=== PATIENT | female | born 1945 | race Caucasian/White ===

== ENCOUNTER 2017-01-29 14:43 | Observation (INO) | payer OTHER, MEDICARE ==
[~2017-01-29] VITALS: Ht 175.3 cm; Wt 96.6 kg
[~2017-01-29 14:43] MED LIST: ASPI-973 PO; ATEN25TA PO; CHOL200047 PO; FISH12002 PO; GINK120C PO; LIP40 PO; LOSA25TA21 PO
--- NOTE | 2017-01-29 14:46 | ED.REPORT ---
HPI-Neurologic Deficit Date of Service Jan 29, 2017 ED Provider: Jose Miguel Mendieta DO Patient is a 71 year old female with a history of breast cancer and CAD who presents to the ED due to sudden onset dysphasia onset 15 minutes ago. Per triage, the patient had a steady gait but noticed a slight right sided facial droop. The patient states she has been "unable to remember words" and was confused while reading. She denies numbness or weakness on one side of the body. Patient is currently on Eliquis. Nursing Notes Stated Complaint: STROKE Nursing Notes Reviewed: Yes Allergies: Coded Allergies: No Known Allergies (Verified , 01/29/17) Scheduled Aspirin (Aspirin) 81 Mg Tablet 81 MG PO DAILY Atorvastatin (Lipitor) 40 Mg Tablet 40 MG PO DAILY Cholecalciferol (Vitamin D3) (Vitamin D3) 2,000 Unit Capsule 2,000 UNIT PO DAILY Ginkgo Biloba Extract (Ginkgo Biloba) 120 Mg Capsule 120 MG PO BIDAC Losartan Potassium (Losartan Potassium) 25 Mg Tablet 25 MG PO DAILY Metoprolol Tartrate (Metoprolol Tartrate) 50 Mg Tablet 50 MG PO BID Miscellaneous Medications Apixaban (Eliquis) 5 Mg Tablet 5 MG PO Fish Oil/Borage/Flax/Om3,6,9#1 (Dubois 3-6-9 1,200 mg Softgel) 1,200 Mg Capsule 1 ,200 MG PO General Time Seen by Provider: 14:45 Chief Complaint Slurred speech Hx Obtained From: Patient Arrived By: Walk-in Sudden in Onset?: Yes Onset Occurred: 16 - 30 minutes ago Symptom Duration: Since onset Similar Sx Previous: No Risk Factors TPA Administration/Criteria Stroke Thrombolytic Therapy : TPA Considered: Yes Intensive Monitoring Performed: Yes TPA Administered Intravenously: No, exclusion criteria (patient is on Eliquis) NIH Stroke Scale Level of Consciousness: Alert and responsive (0) Ask Month & Age: Both questions right (0) Open/Close Eyes/Hand Water Conservation Specialist: Performs both tasks (0) Horizontal EO Movements: None (0) Visual Luna: No visual loss (0) Facial Palsy: Normal symmetry (0) Right Arm Motor Drift (10s): No drift 10 sec (0) Left Arm Motor Drift (10s): No drift 10 sec (0) Right Leg Motor Drift (5s): Drift, not touch bed (1) Left Leg Motor Drift (5s): No drift 5 sec (0) Sensation (Arms/Legs/Face): No sensory loss (0) Language Aphasia: Loss fluency ID matls (1) (expressive aphasia) Dysarthria: No dysarthria, normal (0) Extinction/Inattention: No exctinct/inattent (0) NIHSS Score: 2 Time NIHSS Performed: 14:59 Date NIHSS Performed: Jan 29, 2017 CVA Risk Stratification Age >60 Anticoag/bleed diathesis Atrial fibrillation Hypertension RF Statements: Risk factors reviewed Past Medical History Past Medical History breast cancer, lymphedema spinal stenosis Reports: Coronary artery disease, GERD, Hypertension Reports: Atrial fibrillation Past Surgical History back left mastectomy Reports: CABG Smoking History Former Smoker Ambulatory Status Independent Review of Systems Review of Systems Note: +facial droop Neurologic: Reports: Confusion, Slurred speech (dysphasia), Denies: Numbness, Weakness Complete sys rev & neg: except as marked. Physical Exam Initial Vital Signs Vital Signs (First) Date Time Temp Pulse Resp B/P Pulse Ox O2 Delivery O2 Flow Rate FiO2 01/29/17 15:00 58 14 150/86 98 Room Air Initial VS: Reviewed General/Constitutional: Awake, Alert Head / Eyes: Atraumatic, Normocephalic Respiratory / Chest: Atraumatic, Breath sounds NL, Breath sounds = bilat, No respiratory distress Cardiovascular: Heart rate NL, Regular rhythm, Heart sounds NL Neurologic: Oriented X3 Abdomen: Atraumatic, Soft, Non-tender Upper Extremity / MS: Atraumatic, Inspection NL Lower Extremity / Pelvis / MS: Atraumatic, Inspection NL Skin: Atraumatic, Color NL, No rash, Warm, Dry Interpretation & Diagnostics Lab Results Interpretation Result Diagram: 01/29/17 1500 01/29/17 1500 Test 01/29/17 15:00 White Blood Count 6.0th/mm3 (3.8-10.1) Red Blood Count 4.63mil/mm3 (3.90-5.20) Hemoglobin 13.3g/dL (12.0-15.6) Hematocrit 40.6% (35.0-46.0) Mean Corpuscular Volume 87.7fL (81-100) Mean Corpuscular Hemoglobin 28.7pg (27.0-35.0) Mean Corpuscular Hemoglobin Concent 32.8% (32.0-37.0) Red Cell Distribution Width 13.9% (12.3-15.4) Platelet Count 206bil/L (150-400) Neutrophils (%) (Auto) 43.2% (40-74) Lymphocytes (%) (Auto) 41.0% (14-46) Monocytes (%) (Auto) 11.4% (4-12) Eosinophils (%) (Auto) 3.7% (0-5) Basophils (%) (Auto) 0.5% (0-3) Prothrombin Time 9.9sec (8.1-12.5) Prothromb Time International Ratio 0.93ratio Activated Partial Thromboplast Time 28.5sec (22.8-33.0) Sodium Level 135mEq/L (134-144) Potassium Level 4.2mEq/L (3.5-5.2) Chloride Level 98mEq/L (97-108) Carbon Dioxide Level 23mmol/L (18-29) Blood Urea Nitrogen 11mg/dL (8-27) Creatinine 0.62mg/dL (0.57-1.00) Estimat Glomerular Filtration Rate 136mL/min (>59) Glucose Level 96mg/dL (60-99) Calcium Level 9.5mg/dL (8.5-10.1) Total Bilirubin 0.3mg/dL (0.0-1.2) Aspartate Amino Transf (AST/SGOT) 22U/L (0-50) Alanine Aminotransferase (ALT/SGPT) 22U/L (0-32) Alkaline Phosphatase 72U/L (25-165) Troponin T < 0.010ug/L (0.0-0.011) Total Protein 7.8g/dL (6.4-8.4) Albumin 4.6g/dL (3.4-5.0) Hold Hahn Top Tube Received (Received) ECG Interpretation ECG Interpretation: probable left atrial enlargement LVH Time: 15:42 Interpreted by: ED physician Normal ECG Interpretation: Normal rate (51), Normal sinus rhythm X-Ray Chest Interpretation Chest Xray Interpretation: IMPRESSION: Unremarkable chest. No acute cardiopulmonary process is evident. Dictated by: Vignesh Blount M.D. on 01/29/2017 at 14:43 Approved by: Vignesh Blount M.D. on 01/29/2017 at 14:46 Interpretation / Wet Read by: Interpret - Radiologist CT Head Interpretation IMPRESSION: Normal for age, no contraindication to TPA administration. Findings immediately called to the emergency room physician caring for the patient at 2:58 PM. This study fulfills neurological imaging criteria for inclusion or exclusion of acute stroke therapies based on available published neurological imaging guidelines. Dictated by: Cruz Tejada M.D. on 01/29/2017 at 14:58 Approved by: Cruz Tejada M.D. on 01/29/2017 at 15:02 Interpretation / Wet Read by: Interpret - Radiologist Re-Eval/Medical Decision Med Decision/Clinical Course Not a TPA candidate due to anticoagulant use. Patient will be admitted for TIA. Re-Evaluation/Progress #1: Time of Eval: 15:07 Re-Evaluation/Progress Note: Discussed plan to admit for observation. Patient understands and agrees to plan. All questions were addressed. Re-Evaluation/Progress #2: Time of Eval: 15:10 Re-Evaluation/Progress Note: Patient's symptoms continue to improve. Re-Evaluation/Progress #3: Time of Eval: 16:02 Re-Evaluation/Progress Note: Patient reports feeling back at baseline and her symptoms have resolved. Consultation : Referral / Consult Name: Stevo Millard MD Consulted With: Hospitalist Call Returned at: 17:03 Slab Depiler Operator: Agrees with eval, Agrees with plan, Accepts admit Counseled Regarding: Diagnosis, Lab results, Need for admission Discharge & Departure Impression: Primary Impression: TIA (transient ischemic attack) Transient cerebral ischemia type: unspecified Qualified Code: G45.9 - Transient cerebral ischemic attack, unspecified Disposition: ADMITTED TO HOSPITAL Discharge Condition All VS Reviewed: Yes Condition: Stable Referrals: Jose Carlos Velasquez MD (PCP) Sara Attestation Portions of this note were transcribed by Damaris Fallon. I, Dr. Mata Crane personally performed the history, physical exam and medical decision-making; I reviewed and confirmed the accuracy of the information in the transcribed note. Signed by: Sara Sesay, 01/29/17 copies to: Jose Carlos Velasquez MD, Timothy S DO Jan 29, 2017 14:46 Fatoumata Fallon Jan 29, 2017 14:55
[2017-01-29] MEDS ORDERED: 0.9% Sodium Chloride 1,000 ML IV ONE (14:47)
[2017-01-29 15:00] VITALS: BP 150/86; PULSE 58; RESP 14; O2SAT 98
[2017-01-29 15:11] LABS: BASOPHILS % (AUTO) 0.5 % (0-3); EOSINOPHILS % (AUTO) 3.7 % (0-5); MONOCYTES % (AUTO) 11.4 % (4-12); Mean Corpuscular Hemoglobin 28.7 pg (27.0-35.0); Mean Corpuscular Volume 87.7 fL (81-100); NEUTROPHILS % (AUTO) 43.2 % (40-74); Platelet Count 206 bil/L (150-400)
--- NOTE | 2017-01-29 15:16 | DRSVH ---
PROCEDURE: CT BRAIN TPA INDICATIONS: aphasia TECHNIQUE: Noncontrast 4.5 mm thick angled axial sections acquired from the foramen magnum to the vertex, with c oronal reformats. COMPARISON: [facility], MR, BRAIN W&W/O CONTRAST, 06/12/2011, 8:15. FINDINGS: Image quality: Excellent. CSF spaces: Basal cisterns are patent. No extra-axial fluid collections. Ventricles are normal in size and shape. Brain: No midline shift. No intracranial masses or hemorrhage. Fournier-white matter interface is norm al. Skull and face: Calvarium and visualized facial bones are intact, without suspicious lesions. Sinuses: Visualized sinuses and mastoids are clear. IMPRESSION: Normal for age, no contraindication to TPA administration. Findings immediately called to the emergency room physician caring for the patient at 2:58 PM. This study fulfills neurological imaging criteria for inclusion or exclusion of acute stroke therapie s based on available published neurological imaging guidelines. Dictated by: Cruz Tejada M.D. on 01/29/2017 at 14:58 Approved by: Cruz Tejada M.D. on 01/29/2017 at 15:02
[2017-01-29 15:31] LABS: INR 0.93 ratio
[2017-01-29 15:40] LABS: TROPONIN T < 0.010 ug/L (0.0-0.011)
--- NOTE | 2017-01-29 15:48 | DRSVH ---
PROCEDURE: X-RAY CHEST ONE VIEW, PORTABLE ([id number]) INDICATIONS: aphasia, cva symptoms TECHNIQUE: One view of the chest was acquired. COMPARISON: [facility], CT, CHEST WITH CONTRAST, 10/15/2013, 8:52. [facility], CR, CHEST 2VW, 06/21/2014, 10:40. FINDINGS: Surgical changes and devices: Postoperative changes related to previous cardiac heart valve replaceme nt is noted. Median sternotomy wires are present. The most superior sternal wire is fractured. Cli ps are seen within the left axilla. Lungs and pleura: No pleural effusions or pneumothorax. Lungs are clear. Mediastinum: Mediastinal contours appear normal. Heart size is normal. Bones and chest wall: No suspicious bony lesions. Overlying soft tissues appear unremarkable. IMPRESSION: Unremarkable chest. No acute cardiopulmonary process is evident. Dictated by: Vignesh Blount M.D. on 01/29/2017 at 14:43 Approved by: Vignesh Blount M.D. on 01/29/2017 at 14:46
[2017-01-29] MEDS ORDERED: METO50TA3 PO (16:00)
[2017-01-29] MEDS ORDERED: APIX5TAB PO (16:00)
[2017-01-29 16:22] VITALS: BP 138/78; PULSE 55; RESP 11; O2SAT 97
[2017-01-29] MEDS ORDERED: Polyethylene Glycol (PEG) 17 Gm Powder PO PRN (17:40)
[2017-01-29] MEDS ORDERED: Ondansetron 2 mg/mL 2 mL Inj IVPUSH PRN (17:40)
[2017-01-29] MEDS ORDERED: Alum-Mag Hydrox-Simeth 30 mL Suspension PO PRN (17:40)
--- NOTE | 2017-01-29 18:00 | NUR ---
admit 1750 pt arrived from ED via W/C. pt was able to transfer self to hospital bed. pt denies pain/CP/SOB. pt is alert and oriented and has no residual from earlier episode when she was not able to read or communicate. pt has and daughter in room when arrived on floor.
[2017-01-29 18:01] VITALS: BP 158/83; PULSE 58; RESP 18; O2SAT 99
[2017-01-29 18:25] VITALS: PULSE 55
--- NOTE | 2017-01-29 19:38 | DRSVH ---
PROCEDURE: US BILATERAL DUPLEX DOPPLER IMAGING OF THE CAROTIDS ([id number]) INDICATIONS: TIA TECHNIQUE: Color and pulse Doppler interrogation was performed of both carotid systems, with image documentation and velocity measurements. COMPARISON: None. FINDINGS: Stenosis calculations are based on SRU (Society of Radiologists in Ultrasound) criteria. Right side: Brachial blood pressure: 158/83 mm Hg. Common carotid artery peak systolic velocity: 76 cm/sec. Internal carotid artery peak systolic velocity: 98 cm/sec. Internal carotid artery end diastolic velocity: 24 cm/sec. External carotid artery peak systolic velocity: 98 cm/sec. ICA/CCA peak systolic ratio: 1.29. Fournier scale imaging description: Dense atheromatous plaque is present at the carotid bifurcation. Percent internal carotid artery stenosis: Less than 50% stenosis. Vertebral artery: Flow direction is antegrade. Left side: Brachial blood pressure: Not obtained Common carotid artery peak systolic velocity: 83 cm/sec. Internal carotid artery peak systolic velocity: 74 cm/sec. Internal carotid artery end diastolic velocity: 27 cm/sec. External carotid artery peak systolic velocity: 79 cm/sec. ICA/CCA peak systolic ratio: 0.89. Fournier scale imaging description: Mild atheromatous plaque at the carotid bifurcation. Percent internal carotid artery stenosis: Less than 50% stenosis. Vertebral artery: Flow direction is antegrade. IMPRESSION: Less than 50% stenosis of the bilateral internal carotid arteries. Dictated by: Yi Lerner M.D. on 01/29/2017 at 19:34 Approved by: Yi Lerner M.D. on 01/29/2017 at 19:36
[2017-01-29] MEDS ORDERED: NITR0.4T38 SL (19:54)
[2017-01-29] MEDS ORDERED: DIPH25CA6 PO (19:54)
[2017-01-29] MEDS ORDERED: ATOR80TA77 PO (19:54)
[2017-01-29] MEDS ORDERED: SENN-133 PO (19:54)
[2017-01-29] MEDS ORDERED: ASCO500C6 PO (19:54)
[2017-01-29 20:00] VITALS: PULSE 57
[2017-01-29 20:39] VITALS: BP 137/86; PULSE 60; RESP 16; O2SAT 96
--- NOTE | 2017-01-29 20:50 | PCM.HPMED ---
Subjective Date of Service Jan 29, 2017 Primary Provider: Admitting Physician: Stevo Millard MD Primary Care Physician: Jose Carlos Velasquez MD Attending Physician: Stevo Millard MD Admit Status: From the Emergency Department, 23-Hour Observation, Admit to [facility], Remote Telemetry Chief Complaint: Expressive aphasia. . History of Present Illness: Bridgette Mcghee is a 71-year-old female with a past medical history significant for CAD status post CABG 3 vessels, hypertension, hyperlipidemia, ocular migraines untreated, and left breast cancer status post mastectomy and tamoxifen now in remission who presented to [facility] emergency Department for expressive aphasia. 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 She then was talking to her boss regarding the resumes and was unable to gather words and say what she was thinking. She reports that earlier this morning she had an ocular migraine , as well as, last week. She believes her ocular migraines are worsening and becoming more frequent. Her reports that she had slurred speech which lasted about 20 minutes. She had no facial droop or focal extremity weakness. She denies sore throat, cough, chest pain, shortness of breath, abdominal pain, nausea, vomiting, fever, chills, dysuria, or diarrhea. She does endorse some dizziness several days ago and chronic constipation. She has no other complaints. Vital signs in the ER: Temperature 36.8. Pulse 58. Respiratory rate 14. Blood pressure 150/86. Pulse ox 98% on room air. She received 1 L of NS in the ED. PCP is Dr. Jose Carlos Velasquez. Line Mechanic is Dr. Velazquez. . Review of Systems: A comprehensive review of systems was conducted with the patient and found to be negative except as above in the History of Present Illness. . Allergies Coded Allergies: No Known Allergies (Verified , 01/29/17) Home Medications Aspirin 81 mg twice daily. Diphenhydramine 25-50 mg as needed for sleep Eliquis 5 mg twice daily. Atorvastatin 80 mg daily. Fish oil 1200 mg daily. Ginkgo biloba 120 mg twice a day before meals. Losartan 25 mg daily Metoprolol tartrate 50 mg twice a day. Senokot 8.6 mg twice daily. Vitamin D3 2000 international units daily. Vitamin C 500 mg daily . PMH 1. Left breast cancer, status post left mastectomy and tamoxifen, in remission monitored annually with mammogram. 2. CAD status post CABG x 3 vessels. 3. Hypertension. 4. Hyperlipidemia. 5. Paroxysmal atrial fibrillation on Eliquis. 6. Bicuspid aortic valve status post valve replacement. 7. Ocular migraines. . Surgical History 1. Bilateral tubal ligation. 2. Laparotomy for hemorrhage. 3. CABG x vessels. 4. Left mastectomy. 5. L4-L5 fusion. 6. Bicuspid aortic valve status post valve replacement. 7. Parathyroid adenoma status post parathyroidectomy. 8. Appendectomy. . Family History Mother who had several CVA at 82 years old and at 97 years old. Father who had tuberculosis and of AAA. No siblings. . Social History Hx Alcohol Use: Yes (1x/week) Hx Substance Use: No Hx Tobacco Use: Yes (quit 1985, 1 ppd x 18 years) Smoking Status: Former Smoker Exam Vital Signs Vital Sign - Last Date Time Temp Pulse Resp B/P Pulse Ox O2 Delivery O2 Flow Rate FiO2 01/29/17 18:25 55 01/29/17 18:01 36.8 18 158/83 99 Room Air Exam General: Older female lying in bed and in no acute distress, well-developed, well-nourished, appropriately interactive. HEENT: Normocephalic, atraumatic. External ears without defect. Pupils equal, round, and reactive to light. Anicteric sclerae, moist conjunctivae, and no lid lag. Oropharynx free of erythema and cobble stoning with moist mucosa. Neck: Supple with full range of motion. No jugular venous distension. No bruits. No lymphadenopathy or thyromegaly. Cardiovascular: Regular rate and rhythm without murmurs, rubs, or gallops appreciated Pulmonary: Clear to auscultation bilaterally without crackles, wheezes, or rhonchi. Normal respiratory effort with no use of accessory muscles. Abdomen: Soft, nontender, nondistended, bowel sounds present. No hepatosplenomegaly or masses appreciated. Extremities: No clubbing, cyanosis, or edema. Skin: Normal temperature, turgor, and texture; no rash, ulcers, or subcutaneous nodules appreciated. Neurological: Cranial nerves grossly intact. Normal muscle strength, tone, and bulk. Bilateral plantar reflexes normal. No dysmetria or motor drift. Deep tendon reflexes, coordination, and sensory function within normal limits. No known gait impairment. Psychiatric: Normal mood and affect. Alert and oriented to person, place, and time. . Lab and Diagnostics Labs Item Value Date Time Prothrombin Time 9.9 sec 01/29/17 1500 Prothromb Time International Ratio 0.93 ratio 01/29/17 1500 Activated Partial Thromboplast Time 28.5 sec 01/29/17 1500 Item Value Date Time Calcium Level 9.5 mg/dL 01/29/17 1500 Total Bilirubin 0.3 mg/dL 01/29/17 1500 Aspartate Amino Transf (AST/SGOT) 22 U/L 01/29/17 1500 Alanine Aminotransferase (ALT/SGPT) 22 U/L 01/29/17 1500 Alkaline Phosphatase 72 U/L 01/29/17 1500 Troponin T < 0.010 ug/L 01/29/17 1500 Total Protein 7.8 g/dL 01/29/17 1500 Albumin 4.6 g/dL 01/29/17 1500 Result Diagram: 01/29/17 1500 01/29/17 1500 X-Rays, CTs and MRIs X-RAY CHEST ONE VIEW, PORTABLE IMPRESSION: Unremarkable chest. No acute cardiopulmonary process is evident. Dictated by: Vignesh Blount M.D. on 01/29/2017 at 14:43 CT BRAIN TPA IMPRESSION: Normal for age, no contraindication to TPA administration. Findings immediately called to the emergency room physician caring for the patient at 2:58 PM. This study fulfills neurological imaging criteria for inclusion or exclusion of acute stroke therapies based on available published neurological imaging guidelines. Dictated by: Cruz Tejada M.D. on 01/29/2017 at 14:58 . Assessment & Plan Bridgette Mcghee is a 71-year-old female with a past medical history significant for CAD status post CABG 3 vessels, hypertension, hyperlipidemia, ocular migraines untreated, and left breast cancer status post mastectomy and tamoxifen now in remission who presented to [facility] emergency Department for expressive aphasia. 1. Transient expressive aphasia, not present on admission. Active. - The patient presented after 20 minutes of expressive aphasia and mild slurred speech without facial droop or focal extremity weakness. - CVA risk factors include: CAD status post CABG, hypertension, hyperlipidemia, ocular migraines, paroxysmal atrial fibrillation. - Differential diagnosis includes: TIA versus ocular or complex migraine. - NIHSS on admission was 2. - CT brain without contrast did not demonstrate any acute intracranial abnormalities. - Ordered bilateral carotid Doppler ultrasound, pending. - Ordered echocardiogram, pending. - Ordered physical, occupational, and speech therapies. - Continue Eliquis 5 mg twice daily and aspirin 81 mg twice daily. Do not believe the patient failed anticoagulant as there is no evidence of CVA. - Ordered MRI stroke protocol, however, the patient does have hardware in her low lumbar spine which may be a contraindication to MRI. If so will proceed with CTA brain. 2. Probable ocular migraine, present on admission. Active. - Highly recommend the patient been seen by neurology and treated as an outpatient. - Rule out TIA, see plan above. Chronic problems: 3. CAD status post CABG x 3 vessels. - Continue Eliquis 5 mg twice daily and aspirin 81 mg twice daily. 4. Hypertension, present on admission. Stable. - Continue losartan 25 mg daily and metoprolol tartrate 50 mg twice a day. 5. Hyperlipidemia, present on admission. Stable. - Continue atorvastatin 80 mg daily. 6. Paroxysmal atrial fibrillation on Eliquis, present on admission. Stable. - Continue Eliquis 5 mg twice daily. 7. Bicuspid aortic valve status post valve replacement, present on admission. Stable. - Continue Eliquis 5 mg twice daily and aspirin 81 mg twice daily. 8. Left breast cancer, status post left mastectomy and tamoxifen, in remission monitored annually with mammogram. PRN antiemetics: Zofran and Maalox. PRN bowel regimen: Senna and MiraLAX. PRN analgesics: Tylenol. Patient is admitted under observation status with expected length of stay less than 2 midnights due to severity of presenting symptoms, risk of adverse event, and complexity of treatment plan. . VTE Prophylaxis: Other (Eliquis ) Resuscitation Status: CPR: Attempt Resuscitation Attending Statement patient seen independently,discussed with resident Dr Beck .I agree with history ,exam,assessment and plan copies to: Chino Velazquez MD; Jose Carlos Velasquez MD, [place] M DO Jan 29, 2017 18:53 Stevo Millard MD Jan 29, 2017 21:26
--- NOTE | 2017-01-29 21:37 | NUR ---
Unable to have MRI: Unable to have the MRI tonight. pulmonology technician discussed pt's health history with pt, [place] specifically stated no MRIs after placing hardware with back surgery two years ago. Dr. Beck called and informed. Further care will be discussed with the doctor tomorrow.
[2017-01-30] VITALS (7 sets, daily range): BP systolic 106–145; BP diastolic 62–111; PULSE 53–63; RESP 16–18; O2SAT 95–97
[2017-01-30 06:52] LABS: BASOPHILS % (AUTO) 0.6 % (0-3); EOSINOPHILS % (AUTO) 3.7 % (0-5); MONOCYTES % (AUTO) 9.3 % (4-12); Mean Corpuscular Hemoglobin 28.9 pg (27.0-35.0); Mean Corpuscular Volume 88.3 fL (81-100); Platelet Count 189 bil/L (150-400)
--- NOTE | 2017-01-30 09:20 | NUR ---
Evaluation completed. Please go to "Notes" then click on "Assessments and Notes" (bottom left corner of screen). Then select appropriate discipline tab on top of screen.
--- NOTE | 2017-01-30 11:08 | NUR ---
Social Work-initial assessment/ readiness for discharge/ multidisciplinary rounds: Data:See initial assessment. Pt is a 71 y/o female who was admitted on 01/29/17 for TIA per H&P. Pt's insurance is [employer] and [facility] and PCP is Jose Carlos Velasquez MD. EMR reviewed. Pt' readmission score is 2. SW met with pt and at bedside, SW role explained. Pt is alert and oriented x3. Pt resides at home with her where she remains independent with ADLS. Pt drives and does not use any DME. Pt has no HH or SNF history. No long-term care insurance or VA benefits. Pt has completed DPOA/ advanced directive paperwork, SW encouraged a copy to be brought in. PT evaluation is pending. ST has cleared pt for home. 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 SW provided pt with discharge planning checklist and encouraged pt to call with any questions, SW provided phone number on white board in room. Pt's to provide transport home. No anticipated discharge needs. SW will continue to follow if needs arise. Assessment:Pt who is independent at baseline. Plan:Pt to discharge home when medically stable via POV. No anticipated discharge needs. SW will continue to follow if needs arise. JAROD Sheets Addendum: 01/30/17 at 1119 by LEELEE FULLER SS Amended: Links added. Addendum: 01/30/17 at 1513 by LEELEE MCLEOD PT has cleared pt for home no needs. Leelee Fuller,JAROD
--- NOTE | 2017-01-30 14:44 | DRSVH ---
[facility] [address] [place] [address] Echocardiogram Report Name: BALJEET JONES MStudy Date: Height: 69 in Hospital Exam Location: [facility] Weight: 213 lb Gender: Female BSA: 2.1 m2 : 1945 Age: 71 yrs BP: 114/71 mmHg Reason For Study: TIA Ordering Physician: HOSPITALIST [facility] Performed By: Viola Muhammad Referring Physician: Hayder Hospitalist Interpretation Summary Sinus bradycardia. Heart rate is 51-54 bpm Normal LV size, wall thickness, wall motion and LV systolic function. EF is 55-60%. Moderate biatrial enlargement. Otherwise normal chamber sizes. No PFO based on color flow Doppler. Aortic valve is replaced with a stented bioprosthesis It is functioning normally. It is a 23 Perimount bioprosthesis placed 04/17/2016 for severe aortic stenosis. There is mild MAC with mild associated MR. No source of embolism identified. Compared to prior study 07/23/2016, small pericardial effusion is no longer seen. Otherwise no significant changes have occurred. Procedure: A two-dimensional transthoracic echocardiogram with color flow and Doppler was performed. The study quality was technically adequate. Comparison is made with the echocardiogram of 07/23/16. The patient was in sinus bradycardia with heart rates between 51-54 bpm during the exam. The patient had occasional PVCs during the exam. Left Ventricle: The left ventricle is normal in size, wall thickness, and systolic function without any focal wall motion abnormalities. The ejection fraction is estimated to be 55-60%. Assessment of diastolic parameters indicates normal left ventricular diastolic function and normal filling pressures. Normal PV flow systolic predominance. Right Ventricle: The right ventricle is normal in size and function. Atria: The left atrium is moderately dilated. The right atrium is moderately dilated. There is no Doppler evidence for an interatrial shunt. Mitral Valve: The mitral valve leaflets appear mildly thickened, but open well. There is trace mitral regurgitation. Aortic Valve: There is a bioprosthetic aortic valve. The prosthetic aortic valve is well-seated. The prosthetic aortic valve appears to open well. The prior LVOT diameter measured at 2.2, today the diameter measured at 1.8. The peak aortic velocity is 2.7 m/sec. The peak aortic velocity on the previous exam was 2.4 m/sec. No aortic regurgitation is present. Tricuspid Valve: The tricuspid valve is normal in structure and function. There is a trace or physiologic amount of tricuspid regurgitation. The right ventricular systolic pressure is estimated at 26 mmHg assuming a right atrial pressure of 3 mm Hg. Pulmonic Valve: The pulmonic valve is not well seen, but is grossly normal. There is a trace or physiologic amount of pulmonic regurgitation. Great Vessels: The aortic root is normal size. The ascending aorta is mildly enlarged. The pulmonary artery is not well visualized, but is probably normal size. The IVC is of normal diameter and collapses greater than 50% with a sniff. This suggests a low right atrial pressure of 3 mm Hg. Pericardium/ Pleura There is no pericardial effusion. There is no pleural effusion. MMode/2D Measurements & Calculations LVIDd: 5.1 cm LVIDs: 4.0 cm LA A2 area: 26.2 cm FS: 20.7 % LA A4 area: 24.0 cm EPSS: 1.1 cm LA length (vol): 6.2 cm IVSd: 0.91 cm LA vol: 86.2 ml LVPWd: 0.91 cm LA vol index: 40.6 ml/m IVC diam: 1.4 cm RA long axis: 5.6 cm LVOT diam: 1.8 cm RA area: 24.1 cm Ao root diam: 3.1 cm RA vol: 88.6 ml asc Aorta Diam: 3.7 cm RA : 41.7 ml/m2 LV hood. diameter/BSA (cm/m^2): 2.4 LV sys. diameter/BSA (cm/m^2): 1.9 RVD1 (basal): 3.7 cm Doppler Measurements & Calculations Ao V2 max: 271.8 cm/sec MV E max mauri: 119.3 cm/sec Ao max P.9 mmHg MV A max mauri: 88.3 cm/sec Ao mean P.6 mmHg MV P1/2t: 90.0 msec LVOT Max Mauri: 84.1 cm/sec BOBO(I,D): 0.83 cm sev ratio: 0.31 MV E/A: 1.4 TR max mauri: 238.1 cm/sec TR max P.7 mmHg PA V2 max: 84.0 cm/sec PA mean P.8 mmHg MV dec time: 0.30 sec MV P1/2t max mauri: 119.3 cm/sec MVA(P1/2t): 2.4 cm2 Ao V2 mean: 194.2 cm/sec LV V1 max P.8 mmHg Ao V2 VTI: 68.9 cm LV V1 VTI: 21.5 cm BOBO(V,D): 0.82 cm2 PA V2 mean: 65.9 cm/sec BOBO indexed to BSA (cm^2/m^2): 0.39 Reading Physician:02:43 PM
--- NOTE | 2017-01-30 15:23 | PCM.DIMED ---
Discharge Instructions Date of Service Jan 30, 2017 Dates of Hospitalization Jan 29, 2017 at 17:04 Discharge Diagnosis Discharge Diagnosis 1. Transient expressive aphasia, not present on admission. resolved 2. ocular migraine, present on admission. Active. 3. symptomatic right carotid stenosis of around 70% on CTA Chronic problems: 4. Hypertension, present on admission. Stable. 5. Hyperlipidemia, present on admission. Stable. 6. Paroxysmal atrial fibrillation on Eliquis, present on admission. Stable. 7. Bicuspid aortic valve status post valve replacement, present on admission. Stable. 8. History of Left breast cancer, status post left mastectomy and tamoxifen, in remission 9. CAD status post CABG x 3 vessels. Diet Discharge Diet: Low fat, Low Sodium Activity Discharge Activity: Limited until seen by PCP Call your provider Call your provider for: Fever or Chills, Shortness of breath, Bleeding, Chest pain, Vomitting, Excessive diarrhea, Weakness (unilateral) Patient Instructions Patient Instructions # You were hospitalized due to transient ischemic attack . echocardiogram unremarkable. bilateral carotid Doppler ultrasound estimates < 50 % stenosis but CT angiogram estimates at least a 70% stenosis at the right internal carotid artery origin.evaluated by neurology Dr Crandall , he recommends vascular surgical evaluation.community placement worker Amee is trying to get you an appointment in [place] and will call you later . Please continue Aspirin,atorvastatin and eliquis as usual . Aspirin 81 mg daily should suffice for stroke prevention. # Dr Crandall has started you on topiramate 25 mg by mouth daily for your ocular migraine. Increase dose to 25 mg by mouth twice a day after [address] crandall's office will call you with follow-up appointment date. Follow-up Provider: Jose Carlos Velasquez MD Follow-up with PCP in: 1 week Provider: Pa Crandall MD Follow-up in: 3 weeks Additional Information Please get evaluation with vascular surgeon in [facility] in 1-2 weeks. No vascular surgeon available in our hospital currently. our vascular surgeon Dr.Morrie Warren on medical leave. Stevo Millard MD Jan 30, 2017 15:23
--- NOTE | 2017-01-30 15:43 | NUR ---
Social Work-discharge: Data:EMR reviewed. Pt is on day 1 of hospitalization for TIA per H&P. Pt is medically stable for discharge. PT has cleared pt for home no needs. Pt's to provide transport home. No anticipated discharge needs. All updated and agreeable to plan. Assessment:Pt who is independent at baseline. Plan: Pt to discharge home today via POV. No anticipated discharge needs. All updated and agreeable to plan. JAROD Sheets Addendum: 01/31/17 at 0809 by ANGELA FELIPE SS LENIN updated that discharge was cancelled for cardiology consult today. LENIN will continue to follow. JAROD Sheets
--- NOTE | 2017-01-30 17:12 | DRSVH ---
PROCEDURE: CT ANGIO HEAD AND NECK (P) INDICATIONS: TIA,unable to do MRI TECHNIQUE: Pre-contrast 4.5 mm thick sections acquired from the foramen magnum to the vertex. After the adminis tration of intravenous contrast, 1 mm thick sections acquired from the aortic arch through the [place] of [place]. Post-contrast 4.5 mm thick sections then re-acquired from the foramen magnum to the vert ex. 3-dimensional fyaiffd-zpaeqvtjp-sxiwedigat (MIP) and/or volume rendering reformats were acquired of the central intracranial vasculature and neck separately. For radiation dose reduction, the foll owing was used: automated exposure control, adjustment of mA and/or kV according to patient size. COMPARISON: [facility], CR, XR CHEST 1VW (PORTABLE), 01/29/2017, 15:17. [facility], CT, CT BRAIN TPA, 01/29/2017, 14:47. [facility], US, US CAROTID DPLX DOPPLER BILA T, 01/29/2017, 18:27. FINDINGS: Image quality: Excellent. BRAIN: CSF spaces: Ventricles are normal in size and shape. Basal cisterns are patent. No extra-axial flu id collections. Brain: No midline shift. No intracranial bleeds or masses. Fournier-white matter interface appears int act. Skull and face: Calvarium and facial bones appear intact, without suspicious lesions. Orbits appear normal. Sinuses: Sinuses and mastoids are clear. HEAD CT ANGIOGRAPHY: Anterior circulation: Intracranial internal carotid arteries are normal in size and flow. The flow within the paired anterior cerebral arteries is normal and symmetric. The flow within the middle cer ebral arteries is normal and symmetric. The anterior communicating artery is seen. No aneurysms are seen. Posterior circulation: Visualized portions of the vertebral arteries demonstrate normal caliber, and join to form a normal appearing basilar artery. Flow within the posterior cerebral arteries is norm al and symmetric. No aneurysms are seen. NECK CT ANGIOGRAPHY: Carotid system: The great vessels demonstrate a conventional anatomy as they arise from the aortic a rch. The origins of the common carotid arteries appear patent. The common carotid arteries demonstr ate normal caliber and courses. The bifurcation regions asymmetrically involved by atherosclerotic c alcification with dense calcific plaquing at the bifurcation on the right, as was seen during carotid ultrasound 01/29/17. Morphologically the narrowing of the origin of the right internal carotid arter y would be estimated at 70%. The internal carotid arteries demonstrate normal calibers and courses. Posterior circulation: The origins of the vertebral arteries both appear widely patent. The more carlos perior extracranial portions of both vertebral arteries also demonstrate normal courses and calibers. They join to form a normal appearing basilar artery. Soft tissues: Visualized neck soft tissues demonstrate no suspicious abnormalities. Bones: No suspicious bony lesions. Visualized cervical spine appears normally aligned. IMPRESSION: Dense atherosclerotic plaquing with extensive calcification is present asymmetrically pro minent at the bifurcation of the right common carotid artery and extending into the proximal right in ternal carotid artery. This was seen by ultrasound of the carotid arteries bilaterally one day ago, but the degree of stenosis estimated by the ultrasound is appreciably less than that suspected by mor phologic appearance during this CT scanning. I would estimate that there is at least a 70% stenosis at the right internal carotid artery origin. Vascular surgical consultation may be warranted, and further assessment for whether the patient is a potential candidate for MR angiography is recommended. Based on symptomatology and the current findi ngs by CT angiography followed by catheter angiography may become necessary. Dictated by: Cruz Tejada M.D. on 01/30/2017 at 17:01 Approved by: Cruz Tejada M.D. on 01/30/2017 at 17:10
--- NOTE | 2017-01-30 17:56 | PCM.PNMED ---
Subjective Date of Service Jan 30, 2017 Subjective No episode of ocular migraine or aphasia today. No neuro complaints of findings Exam Vital Signs Vital Sign - Last Date Time Temp Pulse Resp B/P Pulse Ox O2 Delivery O2 Flow Rate FiO2 01/30/17 14:43 36.9 55 16 127/65 96 Room Air Intake and Output 01/29/17 01/29/17 01/30/17 Cumulative From/Thru 15:00 23:00 07:00 01/29/17 15:00 - 01/30/17 05:53 Intake Total 1000 ml 750 ml 1750 ml Output Total 950 ml 950 ml Balance 1000 ml -200 ml 800 ml Intake Oral 750 ml 750 ml IV Total 1000 ml 1000 ml Output Urine Total 950 ml 950 ml IVs and Medications Medications Reviewed: Medications were reviewed in detail Lab and Diagnostics Result Diagram: 01/30/17 0620 01/30/17 0620 X-Rays, CTs and MRIs X-RAY CHEST ONE VIEW, PORTABLE IMPRESSION: Unremarkable chest. No acute cardiopulmonary process is evident. Dictated by: Vignesh Blount M.D. on 01/29/2017 at 14:43 CT BRAIN TPA IMPRESSION: Normal for age, no contraindication to TPA administration. Findings immediately called to the emergency room physician caring for the patient at 2:58 PM. This study fulfills neurological imaging criteria for inclusion or exclusion of acute stroke therapies based on available published neurological imaging guidelines. Dictated by: Cruz Tejada M.D. on 01/29/2017 at 14:58 .PROCEDURE: CT ANGIO HEAD AND NECK (P) INDICATIONS: TIA,unable to do MRI IMPRESSION: Dense atherosclerotic plaquing with extensive calcification is present asymmetrically prominent at the bifurcation of the right common carotid artery and extending into the proximal right internal carotid artery. This was seen by ultrasound of the carotid arteries bilaterally one day ago, but the degree of stenosis estimated by the ultrasound is appreciably less than that suspected by morphologic appearance during this CT scanning. I would estimate that there is at least a 70% stenosis at the right internal carotid artery origin. Vascular surgical consultation may be warranted, and further assessment for whether the patient is a potential candidate for MR angiography is recommended. Based on symptomatology and the current findings by CT angiography followed by catheter angiography may become necessary. Dictated by: Cruz Tejada M.D. on 01/30/2017 at 17:01 PROCEDURE: US BILATERAL DUPLEX DOPPLER IMAGING OF THE CAROTIDS ([id number]) INDICATIONS: TIA TECHNIQUE: Color and pulse Doppler interrogation was performed of both carotid systems, with image documentation and velocity measurements. COMPARISON: None. FINDINGS: Stenosis calculations are based on SRU (Society of Radiologists in Ultrasound) criteria. Right side: Brachial blood pressure: 158/83 mm Hg. Common carotid artery peak systolic velocity: 76 cm/sec. Internal carotid artery peak systolic velocity: 98 cm/sec. Internal carotid artery end diastolic velocity: 24 cm/sec. External carotid artery peak systolic velocity: 98 cm/sec. ICA/CCA peak systolic ratio: 1.29. Fournier scale imaging description: Dense atheromatous plaque is present at the carotid bifurcation. Percent internal carotid artery stenosis: Less than 50% stenosis. Vertebral artery: Flow direction is antegrade. Left side: Brachial blood pressure: Not obtained Common carotid artery peak systolic velocity: 83 cm/sec. Internal carotid artery peak systolic velocity: 74 cm/sec. Internal carotid artery end diastolic velocity: 27 cm/sec. External carotid artery peak systolic velocity: 79 cm/sec. ICA/CCA peak systolic ratio: 0.89. Fournier scale imaging description: Mild atheromatous plaque at the carotid bifurcation. Percent internal carotid artery stenosis: Less than 50% stenosis. Vertebral artery: Flow direction is antegrade. IMPRESSION: Less than 50% stenosis of the bilateral internal carotid arteries. Dictated by: Yi Lerner M.D. on 01/29/2017 at 19:34 Cardiac Echo Impressions Interpretation Summary Sinus bradycardia. Heart rate is 51-54 bpm Normal LV size, wall thickness, wall motion and LV systolic function. EF is 55-60%. Moderate biatrial enlargement. Otherwise normal chamber sizes. No PFO based on color flow Doppler. Aortic valve is replaced with a stented bioprosthesis It is functioning normally. It is a 23 Perimount bioprosthesis placed 04/17/2016 for severe aortic stenosis. There is mild MAC with mild associated MR. No source of embolism identified. Compared to prior study 07/23/2016, small pericardial effusion is no longer seen. Otherwise no significant changes have occurred. Assessment & Plan Bridgette Mcghee is a 71-year-old female with a past medical history significant for CAD status post CABG 3 vessels, hypertension, hyperlipidemia, ocular migraines untreated, and left breast cancer status post mastectomy and tamoxifen now in remission who presented to [facility] emergency Department for expressive aphasia. 1. Transient expressive aphasia, not present on admission. Active. - The patient presented after 20 minutes of expressive aphasia and mild slurred speech without facial droop or focal extremity weakness. - CVA risk factors include: CAD status post CABG, hypertension, hyperlipidemia, ocular migraines, paroxysmal atrial fibrillation. - Differential diagnosis includes: TIA versus ocular or complex migraine. - NIHSS on admission was 2. - CT brain without contrast did not demonstrate any acute intracranial abnormalities. - bilateral carotid Doppler ultrasound < 50 % stenosis but CTA at least a 70% stenosis at the right internal carotid artery origin.discussed with neurology Dr Olivier , he recommends vascular surgical evaluation. he will also see patient in am for this and her occular migraine which has become more frequent recently. will start topiramate 25 mg by mouth daily the increase to 25 bid after a week per Dr Olivier recommendation. also discussed with surgeon occupational medicine physician ,he states he is not doing carotid surgery anymore. Recommend referral to [place] - Ordered echocardiogram, unremarkable except replaced aortic valve - Ordered physical, occupational, and speech therapies. - Continue Eliquis 5 mg twice daily and aspirin 81 mg twice daily. Do not believe the patient failed anticoagulant as there is no evidence of CVA. - Unable to do MRI due to lumbar hardware. 2. Symptomatic right carotid artery stenosis -sxs TIA ,mx as above 3. ocular migraine, present on admission. Active. - will start topiramate 25 mg by mouth daily the increase to 25 bid after a week per Dr Olivier recommendation -Dr Olivier will see her in am Chronic problems: 4. Hypertension, present on admission. Stable. - Continue losartan 25 mg daily and metoprolol tartrate 50 mg twice a day. 5. Hyperlipidemia, present on admission. Stable. - Continue atorvastatin 80 mg daily. 6. Paroxysmal atrial fibrillation on Eliquis, present on admission. Stable. - Continue Eliquis 5 mg twice daily. 7. Bicuspid aortic valve status post valve replacement, present on admission. Stable. - Continue Eliquis 5 mg twice daily and aspirin 81 mg twice daily. 8. Left breast cancer, status post left mastectomy and tamoxifen, in remission monitored annually with mammogram. 9. CAD status post CABG x 3 vessels. - Continue Eliquis 5 mg twice daily and aspirin 81 mg twice daily. PRN antiemetics: Zofran and Maalox. PRN bowel regimen: Senna and MiraLAX. PRN analgesics: Tylenol. Patient is admitted under observation status with expected length of stay less than 2 midnights due to severity of presenting symptoms, risk of adverse event, and complexity of treatment plan. . Discharge tomorrow VTE Prophylaxis: Other (Eliquis ) Resuscitation Status: CPR: Attempt Resuscitation Stevo Millard MD Jan 30, 2017 17:56
--- NOTE | 2017-01-30 19:15 | NUR ---
CT: Patient had a CT of her neck and head. Per MD patient will have a consult with Cardiology tomorrow and patient is not discharging today. Patient aware of the plan.
[2017-01-31 00:19] VITALS: BP 122/73; PULSE 53; RESP 16; O2SAT 96
--- NOTE | 2017-01-31 04:35 | NUR ---
neuro Pt A&Ox3. drinking coffee for headache - effective. Pt slept most of the night. independent in the room; gait steady. hourly rounding done.
[2017-01-31 04:44] VITALS: BP 137/82; PULSE 59; RESP 18; O2SAT 97
[2017-01-31 06:27] VITALS: PULSE 59
[2017-01-31 08:00] VITALS: PULSE 63
[2017-01-31] MEDS ORDERED: ASPI-973 PO (08:39)
[2017-01-31] MEDS ORDERED: TOPI25TA34 PO (08:39)
--- NOTE | 2017-01-31 08:59 | NUR ---
POST HOSPITAL FOLLOW UP: Called [facility], since patient is new patient to them they need referral from provider here. Called and spoke with Zayda at 's office and she placed note for 's MA to follow up on this referral as it is URGENT and patient is discharging from the hospital today. This patient is not currently an outpatient with at this time either. Asked for call back to me when this is completed as we would like to get patient scheduled as soon as possible per MD orders. Updated CAUSTIC PURIFICATION OPERATOR and she is updating patient Addendum: 01/31/17 at 1330 by VARGAS CHIRINOS CM Spoke with Earline Cast's SAMUEL and let her know we are waiting for referral to be sent to [facility]. She is going to speak with and call me back. Updated CAUSTIC PURIFICATION OPERATOR
--- NOTE | 2017-01-31 09:11 | NUR ---
Social Work-discharge: Data:EMR reviewed. Pt is on day 2 of hospitalization for TIA per H&P. Pt is medically stable for discharge. PT has cleared pt for home no needs. order received for arranging vascular surgery appointment in [place]. UR specialist working on this. UR specialist informed LENIN that [facility] will need a referral from the MD. SW spoke with Hospitalist and he would like Dr. Olivier's office to do this. UR specialist called Dr. Olivier's office and asked them to send the referral. Dr. Olivier's office to call UR specialist back after this has been completed. SW updated pt at bedside regarding process and explained that SW will call pt later today with more information regarding appointment. Pt provided SW with her cell phone number [phone]. SW will continue to follow. Assessment:Pt who is independent at baseline. Plan:Pt to discharge home today via POV. SW to call pt at home later today with more information regarding follow up appointment. SW will continue to follow. JAROD Sheets
--- NOTE | 2017-01-31 09:20 | NUR ---
Discharge nursing note: Patient was discharged to home at 0920. Her IV was removed intact . Her Telemetry was discontinued. . All of her discharge information was reviewed with her and her questions were answered to her satisfaction. Patient was given contact information for Dr Olivier for her followup procedure. [facility] nursing staff member and she drove herself home.
--- NOTE | 2017-01-31 16:07 | NUR ---
Social Work-late entry: UR specialist spoke with Dr. Olivier's MA who has faxed referral to [facility]. [facility] has not yet received this by the end of the day, UR Specialist to follow up again tomorrow on this. [facility] confirms once referral has been received MD will review and they will call the pt directly to schedule an appointment. LENIN called pt at home [phone]. LENIN provided information above and also provided pt with phone number [phone] for [facility] scheduling department if she does not hear from them. Pt updated and agreeable to plan. JAROD Sheets
--- NOTE | 2017-01-31 21:57 | PCM.DC.MED ---
Discharge Summary Date of Service Jan 31, 2017 Dates of Hospitalization Date of Hospital Admission Jan 29, 2017 at 17:04 Date of Discharge: Jan 31, 2017 Providers: Admitting Physician: Stevo Laurent MD Primary Care Physician: Jose Carlos Velasquez MD Attending Physician: Stevo Laurent MD Diagnosis at Time of Discharge Diagnosis at Time of Discharge 1. Transient expressive aphasia, not present on admission. resolved 2. ocular migraine, present on admission. Active. 3. symptomatic right carotid stenosis of around 70% on CTA Chronic problems: 4. Hypertension, present on admission. Stable. 5. Hyperlipidemia, present on admission. Stable. 6. Paroxysmal atrial fibrillation on Eliquis, present on admission. Stable. 7. Bicuspid aortic valve status post valve replacement, present on admission. Stable. 8. History of Left breast cancer, status post left mastectomy and tamoxifen, in remission 9. CAD status post CABG x [address] Crandall Procedures XRay, CTs & MRIs X-RAY CHEST ONE VIEW, PORTABLE IMPRESSION: Unremarkable chest. No acute cardiopulmonary process is evident. Dictated by: Vignesh Blount M.D. on 01/29/2017 at 14:43 CT BRAIN TPA IMPRESSION: Normal for age, no contraindication to TPA administration. Findings immediately called to the emergency room physician caring for the patient at 2:58 PM. This study fulfills neurological imaging criteria for inclusion or exclusion of acute stroke therapies based on available published neurological imaging guidelines. Dictated by: Cruz Tejada M.D. on 01/29/2017 at 14:58 .PROCEDURE: CT ANGIO HEAD AND NECK (P) INDICATIONS: TIA,unable to do MRI IMPRESSION: Dense atherosclerotic plaquing with extensive calcification is present asymmetrically prominent at the bifurcation of the right common carotid artery and extending into the proximal right internal carotid artery. This was seen by ultrasound of the carotid arteries bilaterally one day ago, but the degree of stenosis estimated by the ultrasound is appreciably less than that suspected by morphologic appearance during this CT scanning. I would estimate that there is at least a 70% stenosis at the right internal carotid artery origin. Vascular surgical consultation may be warranted, and further assessment for whether the patient is a potential candidate for MR angiography is recommended. Based on symptomatology and the current findings by CT angiography followed by catheter angiography may become necessary. Dictated by: Cruz Tejada M.D. on 01/30/2017 at 17:01 PROCEDURE: US BILATERAL DUPLEX DOPPLER IMAGING OF THE CAROTIDS ([id number]) INDICATIONS: TIA TECHNIQUE: Color and pulse Doppler interrogation was performed of both carotid systems, with image documentation and velocity measurements. COMPARISON: None. FINDINGS: Stenosis calculations are based on SRU (Society of Radiologists in Ultrasound) criteria. Right side: Brachial blood pressure: 158/83 mm Hg. Common carotid artery peak systolic velocity: 76 cm/sec. Internal carotid artery peak systolic velocity: 98 cm/sec. Internal carotid artery end diastolic velocity: 24 cm/sec. External carotid artery peak systolic velocity: 98 cm/sec. ICA/CCA peak systolic ratio: 1.29. Fournier scale imaging description: Dense atheromatous plaque is present at the carotid bifurcation. Percent internal carotid artery stenosis: Less than 50% stenosis. Vertebral artery: Flow direction is antegrade. Left side: Brachial blood pressure: Not obtained Common carotid artery peak systolic velocity: 83 cm/sec. Internal carotid artery peak systolic velocity: 74 cm/sec. Internal carotid artery end diastolic velocity: 27 cm/sec. External carotid artery peak systolic velocity: 79 cm/sec. ICA/CCA peak systolic ratio: 0.89. Fournier scale imaging description: Mild atheromatous plaque at the carotid bifurcation. Percent internal carotid artery stenosis: Less than 50% stenosis. Vertebral artery: Flow direction is antegrade. IMPRESSION: Less than 50% stenosis of the bilateral internal carotid arteries. Dictated by: Yi Lerner M.D. on 01/29/2017 at 19:34 Cardiac Echo Impression Interpretation Summary Sinus bradycardia. Heart rate is 51-54 bpm Normal LV size, wall thickness, wall motion and LV systolic function. EF is 55-60%. Moderate biatrial enlargement. Otherwise normal chamber sizes. No PFO based on color flow Doppler. Aortic valve is replaced with a stented bioprosthesis It is functioning normally. It is a 23 [place] bioprosthesis placed 04/17/2016 for severe aortic stenosis. There is mild MAC with mild associated MR. No source of embolism identified. Compared to prior study 07/23/2016, small pericardial effusion is no longer seen. Otherwise no significant changes have occurred. Brief History per HPI Bridgette Mcghee is a 71-year-old female with a past medical history significant for CAD status post CABG 3 vessels, hypertension, hyperlipidemia, ocular migraines untreated, and left breast cancer status post mastectomy and tamoxifen now in remission who presented to [facility] emergency Department for expressive aphasia. 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 She then was talking to her boss regarding the resumes and was unable to gather words and say what she was thinking. She reports that earlier this morning she had an ocular migraine , as well as, last week. She believes her ocular migraines are worsening and becoming more frequent. Her reports that she had slurred speech which lasted about 20 minutes. She had no facial droop or focal extremity weakness. She denies sore throat, cough, chest pain, shortness of breath, abdominal pain, nausea, vomiting, fever, chills, dysuria, or diarrhea. She does endorse some dizziness several days ago and chronic constipation. She has no other complaints. Vital signs in the ER: Temperature 36.8. Pulse 58. Respiratory rate 14. Blood pressure 150/86. Pulse ox 98% on room air. She received 1 L of NS in the ED. PCP is Dr. Jose Carlos Velasquez. Special Needs Tutor is Dr. Velazquez. . Hospital Course Bridgette Mcghee is a 71-year-old female with a past medical history significant for CAD status post CABG 3 vessels, hypertension, hyperlipidemia, ocular migraines untreated, and left breast cancer status post mastectomy and tamoxifen now in remission who presented to [facility] emergency Department for expressive aphasia. 1. Transient expressive aphasia, not present on admission. Active. - The patient presented after 20 minutes of expressive aphasia and mild slurred speech without facial droop or focal extremity weakness. - CVA risk factors include: CAD status post CABG, hypertension, hyperlipidemia, ocular migraines, paroxysmal atrial fibrillation. - Differential diagnosis includes: TIA versus ocular or complex migraine. - NIHSS on admission was 2. - CT brain without contrast did not demonstrate any acute intracranial abnormalities. - bilateral carotid Doppler ultrasound < 50 % stenosis but CTA at least a 70% stenosis at the right internal carotid artery origin.discussed with neurology Dr Crandall , he recommends vascular surgical evaluation. he will also see patient in am for this and her occular migraine which has become more frequent recently. will start topiramate 25 mg by mouth daily the increase to 25 bid after a week per Dr Crandall recommendation. 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 Recommend referral to [place] ,referred to vascular surgeon in [place]. to arrange appt and call patient - Ordered echocardiogram, unremarkable except replaced aortic valve - Continue Eliquis 5 mg twice daily and aspirin 81 mg twice daily. Do not believe the patient failed anticoagulant as there is no evidence of CVA. - Unable to do MRI due to lumbar hardware. 2. Symptomatic right carotid artery stenosis -sxs TIA ,mx as above 3. ocular migraine, present on admission. Active. - started topiramate 25 mg by mouth daily the increase to 25 bid after a week per Dr Crandall recommendation -Dr Crandall will see her in office for follow up Chronic problems: 4. Hypertension, present on admission. Stable. - Continue losartan 25 mg daily and metoprolol tartrate 50 mg twice a day. 5. Hyperlipidemia, present on admission. Stable. - Continue atorvastatin 80 mg daily. 6. Paroxysmal atrial fibrillation on Eliquis, present on admission. Stable. - Continue Eliquis 5 mg twice daily. 7. Bicuspid aortic valve status post valve replacement, present on admission. Stable. - Continue Eliquis 5 mg twice daily and aspirin 81 mg twice daily. 8. Left breast cancer, status post left mastectomy and tamoxifen, in remission monitored annually with mammogram. 9. CAD status post CABG x 3 vessels. - Continue Eliquis 5 mg twice daily and aspirin 81 mg twice daily. discharged home condition stable Exam Vital Signs (Last) Date Time Temp Pulse Resp B/P Pulse Ox O2 Delivery O2 Flow Rate FiO2 01/31/17 08:00 63 01/31/17 04:44 36.9 18 137/82 97 Room Air Exam General: Older female lying in bed and in no acute distress, well-developed, well-nourished, appropriately interactive. HEENT: Normocephalic, atraumatic. External ears without defect. Pupils equal, round, and reactive to light. Anicteric sclerae, moist conjunctivae, and no lid lag. Oropharynx free of erythema and cobble stoning with moist mucosa. Neck: Supple with full range of motion. No jugular venous distension. No bruits. No lymphadenopathy or thyromegaly. Cardiovascular: Regular rate and rhythm without murmurs, rubs, or gallops appreciated Pulmonary: Clear to auscultation bilaterally without crackles, wheezes, or rhonchi. Normal respiratory effort with no use of accessory muscles. Abdomen: Soft, nontender, nondistended, bowel sounds present. No hepatosplenomegaly or masses appreciated. Extremities: No clubbing, cyanosis, or edema. Skin: Normal temperature, turgor, and texture; no rash, ulcers, or subcutaneous nodules appreciated. Neurological: Cranial nerves grossly intact. Normal muscle strength, tone, and bulk. Bilateral plantar reflexes normal. No dysmetria or motor drift. Deep tendon reflexes, coordination, and sensory function within normal limits. No known gait impairment. Psychiatric: Normal mood and affect. Alert and oriented to person, place, and time. Test 01/29/17 15:00 01/30/17 06:20 Prothrombin Time 9.9sec (8.1-12.5) Prothromb Time International Ratio 0.93ratio Activated Partial Thromboplast Time 28.5sec (22.8-33.0) Troponin T < 0.010ug/L (0.0-0.011) Hold Hahn Top Tube Received (Received) White Blood Count 5.2th/mm3 (3.8-10.1) Red Blood Count 4.26mil/mm3 (3.90-5.20) Hemoglobin 12.3g/dL (12.0-15.6) Hematocrit 37.6% (35.0-46.0) Mean Corpuscular Volume 88.3fL (81-100) Mean Corpuscular Hemoglobin 28.9pg (27.0-35.0) Mean Corpuscular Hemoglobin Concent 32.7% (32.0-37.0) Red Cell Distribution Width 13.7% (12.3-15.4) Platelet Count 189bil/L (150-400) Neutrophils (%) (Auto) 45.0% (40-74) Lymphocytes (%) (Auto) 41.2% (14-46) Monocytes (%) (Auto) 9.3% (4-12) Eosinophils (%) (Auto) 3.7% (0-5) Basophils (%) (Auto) 0.6% (0-3) Sodium Level 138mEq/L (134-144) Potassium Level 4.4mEq/L (3.5-5.2) Chloride Level 104mEq/L (97-108) Carbon Dioxide Level 24mmol/L (18-29) Blood Urea Nitrogen 14mg/dL (8-27) Creatinine 0.64mg/dL (0.57-1.00) Estimat Glomerular Filtration Rate 131mL/min (>59) Glucose Level 104mg/dL (60-99) Calcium Level 8.8mg/dL (8.5-10.1) Magnesium Level 2.0mg/dL (1.6-2.6) Total Bilirubin 0.3mg/dL (0.0-1.2) Aspartate Amino Transf (AST/SGOT) 19U/L (0-50) Alanine Aminotransferase (ALT/SGPT) 19U/L (0-32) Alkaline Phosphatase 60U/L (25-165) Total Protein 6.3g/dL (6.4-8.4) Albumin 4.0g/dL (3.4-5.0) Discharge Medications Discharge Medications Apixaban (Eliquis) 5 Mg Tablet 5 MG PO BID (Reported) Ascorbic Acid (Vitamin C) 500 Mg Capsule.er 500 MG PO DAILY (Reported) Aspirin (Aspirin) 81 Mg Tablet 81 MG PO DAILY Prescribed by: STEVO LAURENT MD Atorvastatin Calcium (Atorvastatin Calcium) 80 Mg Tablet 80 MG PO HS (Reported) Cholecalciferol (Vitamin D3) (Vitamin D3) 2,000 Unit Capsule 2,000 UNIT PO DAILY (Reported) Fish Oil/Borage/Flax/Om3,6,9#1 (Lovejoy 3-6-9 1,200 mg Softgel) 1,200 Mg Capsule 1 ,200 MG PO DAILY (Reported) Ginkgo Biloba Extract (Ginkgo Biloba) 120 Mg Capsule 120 MG PO DAILY (Reported) Losartan Potassium (Losartan Potassium) 25 Mg Tablet 25 MG PO DAILY (Reported) Metoprolol Tartrate (Metoprolol Tartrate) 50 Mg Tablet 50 MG PO BID (Reported) Sennosides (Senna) 8.6 Mg Tablet 8.6 MG PO BID (Reported) Topiramate (Topamax) 25 Mg Tablet 25 MG PO HS Prescribed by: STEVO LAURENT MD As needed Nitroglycerin SL (Nitroglycerin SL) 0.4 Mg Tab.subl 0.4 MG SL Q5MIN PRN PRN For Chest Pain (Reported) diphenhydrAMINE HCl (Benadryl) 25 Mg Capsule 25-50 MG PO HS PRN PRN For Sleep ( Reported) Followup Plan Disposition: home Discharge Diet: Low fat, Low Sodium Discharge Activity: Limited until seen by PCP Patient Instructions # You were hospitalized due to transient ischemic attack . echocardiogram unremarkable. bilateral carotid Doppler ultrasound estimates < 50 % stenosis but CT angiogram estimates at least a 70% stenosis at the right internal carotid artery origin.evaluated by neurology Dr Crandall , he recommends vascular surgical evaluation.soaker soda worker Amee is trying to get you an appointment in [place] and will call you later . Please continue Aspirin,atorvastatin and eliquis as usual . Aspirin 81 mg daily should suffice for stroke prevention. # Dr Crandall has started you on topiramate 25 mg by mouth daily for your ocular migraine. Increase dose to 25 mg by mouth twice a day after [address] crandall's office will call you with follow-up appointment date. Follow-up Provider: Jose Carlos Velasquez MD Follow-up with PCP in: 1 week Provider: Pa Crandall MD Follow-up in: 3 weeks copies to: Jose Carlos Velasquez MD; Pa Crandall MD, Melaku MD Jan 31, 2017 21:57
--- NOTE | 2017-02-02 18:07 | CONS ---
[address] [address] CONSULTATION REPORT PATIENT: BALJEET JONES : 1945 MR#: [id number] ADMIT: 01/29/2017 JOB ID: [id number] DATE OF SERVICE: 01/31/2017 NEUROLOGY CONSULTATION: REQUESTING PHYSICIAN: Stevo Millard MD CHIEF COMPLAINT: Transient ischemic attack. HISTORY OF PRESENTING ILLNESS: The patient is a very pleasant 71-year-old woman with multiple medical problems who presented following sudden onset of expressive aphasia. This lasted for 15-20 minutes and then completely resolved. During this period of time the patient was noted to have a right-sided facial droop in the emergency department. She reports that she was unable to recall words at this time and was confused when reading. It is unclear if she had not only expressive aphasia but also receptive aphasia. She did not note any numbness or weakness associated with this event. She is on Eliquis. Her other medications include aspirin 81 mg daily, atorvastatin 40 mg daily, cholecalciferol 2000 international units daily, gingko, losartan, and metoprolol. She has no known drug allergies. She takes Eliquis 5 mg daily as well as fish oil. She was evaluated in the emergency department and not a candidate for tPA given that she is on Eliquis. Her NIH stroke scale was two for right leg motor drift, there was a one there, and language aphasia with expressive aphasia, there was another one there. She does have atrial fibrillation and hypertension, as well as a history of breast cancer, lymphedema, spinal stenosis, coronary artery disease, and gastroesophageal reflux disease. She has had spinal surgery, status post left mastectomy, status post coronary artery bypass graft. She is a former smoker. LABORATORY STUDIES: WBC of 6.0, hemoglobin 13.3, hematocrit 40.6, and platelets of 206. Sodium 135, potassium 4.2, bicarb 98, chloride was 23, BUN 11, creatinine was 0.62, and glucose was 96. EKG: Probable left atrial enlargement with left ventricular hypertrophy. Chest x-ray: Unremarkable chest. No acute cardiopulmonary process was noted. She does have a history of coronary artery bypass graft x3 vessels. REVIEW OF SYSTEMS: A complete review of systems was performed and was remarkable for above-noted. She does have a history of hypertension and hyperlipidemia. 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 She reports that earlier that morning she had had an ocular migraine. She is concerned as she has noted an increase in the frequency of her ocular migraines. It is unclear from the history if she was both aphasic and dysarthric, however reading the emergency physician's note it appears that she was aphasic. She also takes diphenhydramine as needed for sleep. She does have a history of a bicuspid aortic valve status post valve replacement, She also has a history of bilateral tubal ligation, laparotomy for a hemorrhage, L4-L5 fusion, parathyroid adenoma status post parathyroidectomy, status post appendectomy. FAMILY HISTORY: Her mother had several strokes in her 80s. No other neurologic disorders. SOCIAL HISTORY: Occasional alcohol. No drugs. No current smoking. Lives with her . She reports that her symptoms completely resolved after 20 minutes. Echocardiogram was performed. It demonstrated sinus bradycardia, heart rate of 51 to 54 beats per minute, normal left ventricular size, wall thickness, wall motion, and left ventricular systolic function. Ejection fraction is 55% to 60%. Moderate biatrial enlargement. Otherwise normal chamber sizes. No patent foramen ovale based on color flow Doppler. The aortic valve was noted to have a stented bioprosthesis which appeared to be functioning normally. There was mild MAC with mild associated MR. No source of embolism was identified. Compared to a prior study of July 31, 2016, a small pericardial effusion is no longer seen. Otherwise it appeared stable. She then had an ultrasound of her carotid arteries which demonstrated less than 50% stenosis of the bilateral internal carotid arteries. A CT angio head and neck was performed. This demonstrated dense atherosclerotic plaques with extensive calcification is present asymmetrically, prominent at the bifurcation of the right common carotid artery, and extending into the proximal right internal carotid artery. This was seen by ultrasound of the carotid arteries bilaterally one day ago, but the degree of stenosis estimated by the ultrasound is appreciably less than that suspected by morphologic appearance during the CT scan. The radiologist estimates that there is at least a 70% stenosis at the right internal carotid artery origin. He also notes that vascular surgery consultation may be warranted and further assessment for whether the patient is a potential candidate for MR angiography is recommended. Based on symptomology and the current findings by CT angiography, followup catheter angiography may become necessary. PHYSICAL EXAMINATION: Temperature 36.7, pulse of 68, respiratory rate of 18, blood pressure 164/71, 94% on room air. General: She is a well-developed, well-nourished woman, in no acute distress. Head: Normocephalic, atraumatic. Neck: Supple. No carotid bruits were auscultated. Chest: Clear to auscultation. Heart: Regular rate and rhythm. Abdomen: Soft, nondistended, nontender. Extremities: No cyanosis, clubbing, or edema. No carotid bruits were auscultated bilaterally. NEUROLOGIC EXAMINATION: She is awake, alert, oriented x3. Speech clear and fluent, with intact comprehension. There was no aphasia. Cranial nerves: Pupils equal, round, and reactive to light. Extraocular movements were smooth and conjugate, with no evidence of nystagmus. Face appeared symmetrical. Facial sensation was intact to light touch and temperature. Auditory sensation was intact to finger rub bilaterally. Palatal elevation was symmetrical. Tongue was midline. Sternocleidomastoid and trapezii are 5/5 bilaterally. Motor: Normal tone and bulk. Muscle strength 5/5 throughout. Sensation intact to light touch and temperature throughout. Deep tendon reflexes 2+ and symmetrical. Plantars were equivocal bilaterally. Coordination: [id number] was intact, without evidence of dysmetria. Gait was deferred. IMPRESSION: 1. Transient ischemic attack with a CT angiogram demonstrating at least 70% stenosis of the right carotid artery, although this contradicts ultrasound findings. I do recommend optimization of control of her stroke risk factors. If clinically indicated, increasing atorvastatin as tolerated. I also recommend an evaluation by vascular surgery. If necessary, a formal cerebral angiogram may need to be performed. However, I would recommend vascular surgery input within two weeks. 2. We discussed management of her ocular migraines in detail. If the ocular migraines persist, I do recommend a trial of Topamax starting at 25 mg at bedtime and increasing gradually upwards by 25 mg a week up to a goal dose of 50 mg twice daily. I do recommend followup in the Neurology Clinic. We discussed management of ocular migraines in detail. I recommend continued optimization of control of her stroke risk factors, placement on transient ischemic attack protocol, expedited appointment with vascular surgery for further evaluation and treatment, and followup with primary care provider within one week. Thank you, again, Dr. Millard, for allowing me to participate in the care of your patient. Please feel free to contact me with any questions or concerns.
== END 2017-01-31 09:12 | disposition home or self-care (01) ==
LOC: SED 14:43 → MPC 17:04
PROVIDERS: ADMIT Internal Medicine; ATTEND Internal Medicine
DX: R13.0 Aphagia (principal); G43.809 Other migraine, not intractable, without status migrainosus; I35.0 Nonrheumatic aortic (valve) stenosis; I10 Essential (primary) hypertension; E78.5 Hyperlipidemia, unspecified; I48.0 Paroxysmal atrial fibrillation; R29.810 Facial weakness; I25.10 Atherosclerotic heart disease of native coronary artery without angina pectoris; R29.702 NIHSS score 2; M48.00 Spinal stenosis, site unspecified; K21.9 Gastro-esophageal reflux disease without esophagitis; Z85.3 Personal history of malignant neoplasm of breast; Z79.82 Long term (current) use of aspirin; Z87.891 Personal history of nicotine dependence; Z95.1 Presence of aortocoronary bypass graft; Z86.69 Personal history of other diseases of the nervous system and sense organs; Z79.01 Long term (current) use of anticoagulants
CPT/HCPCS: 36415; 70450; 70496; 70498; 71010; 80053; 82948; 83735; 84484; 85025; 85610; 85730; 92610; 93005; 93880; 96360; 97162; 99285; C8929; G0378; G8996; G8997; G8998; J7030; Q9967